=== PATIENT | female | born 1985 | race Caucasian/White ===

== ENCOUNTER 2017-12-25 15:06 | Inpatient (IN) | payer OTHER ==
[2017-12-25 16:04] VITALS: BMI 26.4
[2017-12-25] MEDS ORDERED: Morphine 5 MG/ML SYRINGE IM STA (16:18)
[2017-12-25] MEDS ORDERED: Lactated Ringer's 1,000 ML IV SCH (18:30)
--- NOTE | 2017-12-25 21:24 | OBHP ---
Datetime: 12/25/2017 15:50 IP Adm Impression: Term, intrauterine IP Admit Plan: Observation/Evaluation Admit Comment, IP Provider: 32-year-old at 40.0 weeks (LAURA: 12/25/17) presents with contract ions every 9-10 minutes. She denies a gush of fluid per the vagina and vaginal bleeding. Her first pr egnancy resulted in a due to breech positioning. She reports good movement. provider is Dr Dejesus and she last saw him today and her cervical exam was 1 cm dilated. ROS: Systems reviewed and negative except for stated above in HPI. : [facility], Dr Dejesus PMH: denies Meds: denies, PNV daily Allergy: denies FHx: mother - HTN, father - HTN Surgical: Cardiac surgery when she was 3 years old- no complications. OBHx: 1x C/S 2015; 1x SAB 2005 Labs: Blood: B+, antibody neg HIV: neg RPR: neg HbsAg: neg Rubella: immune GBS: unknown PE: in no acute distress, comfortable Cardiac: S1 and S2, no murmurs, gallops or rubs. Resp: no respiratory distress Abd: no tenderness to palpation Extremities: no edema Pelvic: tax associate present (Dr Saucedo), no external lesions, Assessment: 32-year-old at 40.0 weeks (LAURA of 12/25/17) presents with contractions every 9 -10 minutes. Plan: - Morphine 4mg IM given for pain. -NST: reactive, FHR 140, 15x15 accelerations, no decelerations, moderate variability - Patient given labor precautions. Case seen and discussed with Dr Saucedo and Dr. Luis ---Lizzy Cueva, PGY1 The patient was seen with the resident I agree with the note. Pt desires dscussed r/b/a pt de clines operative delivery would like to proceed with BETH pt wishes respected Pelvic Type - PN: Adequate Extremities - PN: Normal Abdomen - PN: Normal Back - PN: Normal Breast - PN: Not Done Lungs - PN: Normal Heart - PN: Normal Thyroid - PN: Not Done HEENT - PN: Not Done General - PN: Normal FHR - Baseline A Provider: 140 EGA AdmitDate IP: 40.0 Vital Signs Provider: Reviewed; Within Normal Limits IP Chief Complaint: Uterine contractions; Maternal discomfort NICHD Variability Prov Fetus A: Moderate 6-25bpm NICHD Accel Fetus A IP Provider: 15X15 FHR Category Provider Fetus A: Category I NICHD Decel Fetus A IP Provider: None Dilatation, Provider: 1-2 Effacement, Provider: 80 Station, Provider: 0 Genitourinary Exam: Normal DTRs - PN: Not Done
[2017-12-25] MEDS ORDERED: Oxytocin 30 UNIT 30 UNITS/500 ML BAG IV ONE (23:37)
[2017-12-25] MEDS ORDERED: Lactated Ringer's 1,000 ML IV ONE (23:37)
[2017-12-26 00:20] LABS: BASO % 0.4 % (0.0-2.0); EOS % 0.3 % (0.0-4.0); LYMPH # 1.7 K/uL (1.0-4.3); MEAN CELL VOLUME 92.4 fl (81.0-99.0); MEAN CORPUSCULAR HEMOGLOBIN 30.4 pg (27.0-31.0); MEAN CORPUSCULAR HGB CONC 32.9 g/dL (33.0-37.0); MEAN PLATELET VOLUME 9.1 fl (7.2-11.7); MONO # 0.7 K/uL (0.0-0.8); MONO % 6.2 % (0.0-10.0); NEUT % 78.1 % (50.0-75.0); RBC 4.29 Mil/uL (3.80-5.20); RED CELL DISTRIBUTION WIDTH 13.5 % (11.5-14.5); WHITE BLOOD COUNT 11.5 K/uL (4.8-10.8)
[2017-12-26] MEDS ORDERED: Fentanyl/Bupivacaine HCl 250 ML EPI ONE (01:15)
[2017-12-26] MEDS ORDERED: Lactated Ringer's 500 ML IV SCH (07:30)
[2017-12-26] MEDS ORDERED: Lactated Ringer's 1,000 ML IV SCH ×2 (07:30→17:45)
[2017-12-26] MEDS ORDERED: ePHEDrine 50 mg/ml Inj ONE (08:08)
[2017-12-26] MEDS ORDERED: Sodium Chloride 0.9% 10 ML IV ONE (08:08)
[2017-12-26] MEDS ORDERED: Phenylephrine 10 mg/ml Inj ONE (08:08)
[2017-12-26] MEDS ORDERED: Lidocaine Hydrochloride 0 ML INJ ONE (08:42)
[2017-12-26] MEDS ORDERED: OXYTOCIN/0.9 % NS 20 UNIT/1,000 ML BAG IV ONE ×2 (08:50→17:38)
--- NOTE | 2017-12-26 12:17 | OBPN ---
Datetime: 12/26/2017 12:12 IP Procedures: Sterile Vag Exam IP Progress Plan: Continue present management Contraction Comments Provider: q5-6min FHR - Baseline A Provider: 120s-130s IP Progress Note Comment: Continue current management. FHT category I. Discussed plan with patient and all patient questions answered. Vital Signs Provider: Reviewed; Within Normal Limits NICHD Accel Fetus A IP Provider: 15X15 FHR Category Provider Fetus A: Category I NICHD Variability Prov Fetus A: Moderate 6-25bpm Dilatation, Provider: 9 Effacement, Provider: 100 Station, Provider: 0 NICHD Decel Fetus A IP Provider: None Datetime: 12/26/2017 02:04 IP Informed Consent Obtain: Vaginal After Membranes, Provider: Ruptured IP Fetus A Comments: 3 minute period of intermittent auscultation with variable heart rate Gestation - Est Wks by US: 40.1 Presentation-Admit: Vertex
[2017-12-26] MEDS ORDERED: ceFAZolin IV 1 gm in Dextrose 1 GM/50 ML BAG IVPB ONE (14:57)
[2017-12-26] MEDS ORDERED: Lidocaine 2% MPF (5 ml) Inj ONE (15:07)
[2017-12-26] MEDS ORDERED: Morphine 1 mg/ml preservative-free Inj(Duramorph) ONE (15:18)
[2017-12-26] MEDS ORDERED: Lidocaine 2% PF (10 ml) Amp ONE (15:25)
--- NOTE | 2017-12-26 15:31 | OBPN ---
Datetime: 12/26/2017 15:27 IP Progress Impression: Arrest of dilatation/descent IP Informed Consent Obtain: Section Delivery; Risks, Benefits and Alternatives Discussed IP Procedures: Sterile Vag Exam IP Progress Plan: Deliver- Section Contraction Comments Provider: q4-5min FHR - Baseline A Provider: 120s-130s IP Progress Note Comment: Pt 9cm for 7.5-8hours. Cervix also swollen and edematous on exam. Discus sed findings with patient and recommended C/S delivery due to arrest of dilatation. Discussed the R/ B/A of surgery with patient and all patient questions. Pt consented for . Anesthesia notif ied. FHT category I. Vital Signs Provider: Reviewed; Within Normal Limits NICHD Accel Fetus A IP Provider: 15X15 FHR Category Provider Fetus A: Category I NICHD Variability Prov Fetus A: Moderate 6-25bpm Dilatation, Provider: 9 Effacement, Provider: 100 Station, Provider: 0 NICHD Decel Fetus A IP Provider: None
[2017-12-26] MEDS ORDERED: Cellulose Hemostat 2X3 Sheet ONE (16:25)
[2017-12-26] MEDS ORDERED: DiphenhydrAMINE 50 mg/ml Inj IVP PRN (16:58)
[2017-12-26] MEDS ORDERED: Midazolam 2 MG/2 ML VIAL ONE (17:04)
[2017-12-26] MEDS ORDERED: Oxycodone/Acetaminophen 5/325 mg Tab PO PRN ×2 (17:38)
[2017-12-26] MEDS ORDERED: Oxytocin 30 UNIT 30 UNITS/500 ML BAG IV ONE (17:38)
[2017-12-27] MEDS ORDERED: Oxytocin 30 UNIT 30 UNITS/500 ML BAG IV ONE (00:27)
[2017-12-27] MEDS ORDERED: Lactated Ringer's 1,000 ML IV SCH (00:27)
[2017-12-27] MEDS ORDERED: Oxycodone/Acetaminophen 5/325 mg Tab PO PRN ×3 (00:27→08:34)
[2017-12-27] MEDS ORDERED: DiphenhydrAMINE 50 mg/ml Inj IVP PRN (00:27)
[2017-12-27 07:16] LABS: BLOOD UREA NITROGEN 9 mg/dl (7-17); CALCIUM 8.1 mg/dL (8.4-10.2); GFR NON-AFRICAN AMERICAN > 60; HEMOGLOBIN 9.6 g/dL (12.0-16.0); MEAN CELL VOLUME 90.3 fl (81.0-99.0); MEAN CORPUSCULAR HEMOGLOBIN 30.9 pg (27.0-31.0); MEAN CORPUSCULAR HGB CONC 34.2 g/dL (33.0-37.0); RBC 3.09 Mil/uL (3.80-5.20); RED CELL DISTRIBUTION WIDTH 13.5 % (11.5-14.5); WHITE BLOOD COUNT 9.9 K/uL (4.8-10.8)
--- NOTE | 2017-12-27 08:33 | OBDS ---
DELIVERY PERSONNEL Welding Supervisor: Nieves Shepherd RN Anesthesiologist: Yosvany Hawley MD [place] Alarm Installer: kris hawley Resident: dr clarke MATERNAL INFORMATION Delivery Anesthesia: Epidural; Spinal Medications in Delivery: pitocin after placenta Estimated Blood Loss (ml): 800 Placenta Cultured: placenta to lab Other Maternal Complications: failed / ftp Provider Comments: Pt is a 32yo 39.5@wk gest, presented with suspected rupture of membranes (21 hours prior to presentation). Pt with failed and failure to progress was brought for C secti on . Epidural given. Delivered viable F @4:14pm via C section with of 9/9/10, Weight 3240gm. Procedure: C section delivery of viable female infant manual removal. No nuchal cord was noted. In raymon was bulb suctioned and was crying spontaneously. was placed with mother. Cord was doubled clamped. Placenta was delivered intact spontaneously and three vessel cords were noted. Pitocin afte r the placenta were given. Estimated blood loss was 800cc. Condition: was taken to nursery. Both mother and infant in stable condition Case reviewed and discussed with Dr.Gressock Natalie Clarke-PGY-1 LABOR SUMMARY EDC: 12/25/2017 00:00 No. Babies in Womb: 1 Attempted: Yes Labor Anesthesia: Epidural LABOR INFORMATION Onset of Labor: 12/26/2017 12:00 Group B Beta Strep: Negative Steroids Given: None MEMBRANES Membranes Rupture Method: Artificial Rupture of Membranes: 12/26/2017 01:57 Length of Rupture (hrs): 14.28 Amniotic Fluid Color: Clear Amniotic Fluid Amount: Moderate Amniotic Fluid Odor: Normal STAGES OF LABOR Stage 3 hrs: 0 Stage 3 min: 1 Total Time in Labor hrs: 4 Total Time in Labor min: 15 VAGINAL DELIVERY Episiotomy: None CSECTION DELIVERY Primary Indication: failed v.b.a.c Secondary Indication: arrest to [place]grass CSection Urgency: Non Elective CSection Incidence: Repeat Labor: Labor Elective: Failed CSection Incision: Lower Uterine Transverse BABY A INFORMATION Delivery Date/Time: 12/26/2017 16:14 Method of Delivery: Born in Route : Yes : Failed Forceps: N/A Vacuum Extraction: N/A SHOULDER DYSTOCIA BABY A Infant Delivery Date/Time: 12/26/2017 16:14 PRESENTATION/POSITION BABY A Presentation: Cephalic Cephalic Presentation: Vertex Vertex Position: Left Occipital Posterior Breech Presentation: N/A PLACENTA INFORMATION BABY A Placenta Delivery Time : 12/26/2017 16:15 Placenta Method of Delivery: Manual Removal Placenta Status: Delivered SCORES BABY A Heart Rate 1 min: >100 bpm Resp Effort 1 min: Good Cry Reflex Irritability 1 min: Cough or Sneeze or Pulls Away Muscle Tone 1 min: Active Motion Color 1 min: Body [place], Extremities Blue SCORE 1 MIN: 9 Heart Rate 5 min: >100 bpm Resp Effort 5 min: Good Cry Reflex Irritability 5 min: Cough or Sneeze or Pulls Away Muscle Tone 5 min: Active Motion Color 5 min: Body [place], Extremities Blue Resuscitation Effort 5 min: Tactile Stimulation SCORE 5 MIN: 9 Heart Rate 10 min: >100 bpm Resp Effort 10 min: Good Cry Reflex Irritability 10 min: Cough or Sneeze or Pulls Away Muscle Tone 10 min: Active Motion Color 10 min: Completely [place] SCORE 10 MIN: 10 INFORMATION BABY A Gestational Age at Delivery: 40.0 Gestational Status: Term Infant Outcome : Liveborn Condition : Stable Sex: Female IDENTIFICATION/MEDS BABY A ID Band Number: [id number] ID Band Location: Left Leg; Left Arm WEIGHT/LENGTH BABY A Birthweight (gms): 3240 Weight (lb): 7 Weight (oz): 2 Infant Length Inches: 20.00 Length cms: 50.8 CORD INFORMATION BABY A No. Cord Vessels: 3 Nuchal Cord : N/A Cord pH Baby Arterial: no Cord pH Baby Venous: yes Cord Blood Taken: Yes Banking/Donate Info: no Suction: Mouth; Nose ASSESSMENT BABY A Complications: None Physical Findings at Delivery: Within Normal Limits Infant Respirations: Appears Normal Crew Car Driver/ALS Called : Yes Infant Care By: dr chopra / handy leon rn / anneliese rapp rn Transferred To: Remains with Mother
[2017-12-27] MEDS ORDERED: Enoxaparin 40 mg Syringe SC SCH ×3 (09:00)
[2017-12-27] MEDS ORDERED: Multivitamin With Minerals Tab PO SCH ×2 (09:00)
[2017-12-27] MEDS: Multivitamin With Minerals Tab PO SCH (09:59)
--- NOTE | 2017-12-27 15:44 | OBPPN ---
Datetime: 12/27/2017 15:41 PP Pain Prov: Within normal limits PP Nausea Prov: Denies PP Flatus Prov: No PP BM Prov: No PP Breasts Prov: Normal PP Heart Prov: Normal PP Lungs Prov: Normal PP Abdomen/Uterus Prov: Normal PP Lochia Prov: Normal PP Vulva/Perineum Prov: Normal PP CVA Tenderness Prov: Normal PP Extremities Prov: Normal PP C/S Incision Prov: Normal PP Progress Prov: Normal PP Impression Prov: Normal progression PP Plan Prov: Continue present management PP Progress Note Prov: She feels some incision pain H/H 11/21 A: S/P C-ssection day 1 anemia - asymtpomatic PLAN: continue post op care Vital Signs Provider PP: Reviewed; Within Normal Limits
[2017-12-27] MEDS: Oxycodone/Acetaminophen 5/325 mg Tab PO PRN ×2 (17:39→21:55)
--- NOTE | 2017-12-28 09:20 | OBPPN ---
Datetime: 12/28/2017 09:17 PP Pain Prov: Within normal limits PP Nausea Prov: Denies PP Flatus Prov: Yes PP BM Prov: No PP Breasts Prov: Normal PP Heart Prov: Normal PP Lungs Prov: Normal PP Abdomen/Uterus Prov: Normal PP Lochia Prov: Normal PP Vulva/Perineum Prov: Normal PP CVA Tenderness Prov: Normal PP Extremities Prov: Normal PP C/S Incision Prov: Normal PP Progress Prov: Normal PP Impression Prov: Normal progression PP Plan Prov: Continue present management PP Progress Note Prov: POD 2 cont postop care; dulcolax tonight if no BM Vital Signs Provider PP: Reviewed; Within Normal Limits
[2017-12-28] MEDS: Multivitamin With Minerals Tab PO SCH (09:43)
[2017-12-28] MEDS: Oxycodone/Acetaminophen 5/325 mg Tab PO PRN (13:46)
[2017-12-29] MEDS: Multivitamin With Minerals Tab PO SCH (09:10)
--- NOTE | 2017-12-29 11:24 | OBPPN ---
Datetime: 12/29/2017 11:22 PP Pain Prov: Within normal limits PP Nausea Prov: Denies PP Flatus Prov: Yes PP BM Prov: Yes PP Breasts Prov: Normal PP Heart Prov: Normal PP Lungs Prov: Normal PP Abdomen/Uterus Prov: Normal PP Lochia Prov: Normal PP Vulva/Perineum Prov: Normal PP CVA Tenderness Prov: Normal PP Extremities Prov: Normal PP C/S Incision Prov: Normal PP Progress Prov: Normal PP Comments Phys Exam Prov: Abdomen soft, nontender, nondistended Incision clean, dry, intact Uterus firm, below umbilicus No deep calf tenderness bilaterally PP Impression Prov: Normal progression PP Plan Prov: Discharge PP Progress Note Prov: Postoperative day #3 status post repeat , patient recovering well Patient discharged home today with postoperative instructions and precautions Patient will follow up in office in 1 week for incision check and staple removal Discussed plan a patient all patient questions answered. IP PP Procedures: None Vital Signs Provider PP: Reviewed; Within Normal Limits
--- NOTE | 2017-12-29 11:30 | OBDCSUM ---
Datetime: 12/29/2017 10:44 Discharged to, Provider: Home Follow up at, Provider: [employer]EL[employer] Disch Instr Activity: Normal activity Disch Instr Diet: Regular Discharge Instructions, Provider: Routine instructions given Discharge Diagnosis, Provider: Term Delivered Discharge Time: 12/29/2017 11:00 Follow up in weeks, Provider: 1 Week Disch Referrals: None Contraception discussed, Prov: Yes Disch Activity Restrictions: No sexual activity; Nothing in vagina - [place], tampons, douche Contraception after Delivery: Undecided
--- NOTE | 2017-12-30 04:08 | OP ---
PROCEDURE DATE: 12/26/2017 PREOPERATIVE DIAGNOSES: Arrest of dilation at 9 cm for approximately 7-1/2 to 8 hours, failed vaginal after section. POSTOPERATIVE DIAGNOSES: Arrest of dilation at 9 cm for approximately 7-1/2 to 8 hours, failed vaginal after section. OPERATION PERFORMED: Repeat low-flap transverse section via Pfannenstiel incision. OPERATIVE FINDINGS: Viable female with Apgars of 9 and 9 in one and five minutes respectively. in direct OP position. Moderate amount of intra-abdominal and pelvic adhesions. Normal uterus, normal tubes and ovaries bilaterally. SURGEON: Jignesh Franco MD ENGRAVER LETTERING: Dr. Saucedo ANESTHESIOLOGIST: Dr. Hawley ANESTHESIA: Spinal. COMPLICATIONS: None. DESCRIPTION OF PROCEDURE: The patient was taken to the operating room where spinal anesthesia was found to be adequate. The patient was prepped and draped in a normal sterile fashion in the dorsal supine position with leftward tilt. A Pfannenstiel skin incision was made with a scalpel. This was carried down through to the underlying layer of fascia with the scalpel. Midline dissection was made in the fascial layer with the scalpel. The fascial incision was then extended bilaterally sharply with curved Brown scissors. The fascial layer was from the underlying rectus muscles both bluntly and sharply with curved Brown scissors. The peritoneal layer was then identified, tented up with Naida clamp x2, and entered sharply with Metzenbaum scissors. This peritoneal incision was then extended superiorly and inferiorly with good visualization of the urinary bladder. Bladder blade was inserted into the abdomen. The vesicouterine peritoneum was then identified, tented upward with Naida clamps x2, and entered sharply with Metzenbaum scissors. This peritoneal incision was then extended bilaterally bluntly. The 's head was delivered atraumatically. Nose and mouth were suctioned with bulb suction. The remainder of the was delivered atraumatically. The cord was clamped and cut. The was handed off to awaiting pediatricians. Cord gases were collected. Cord blood was collected. The placenta was removed manually. The uterus was cleared of all clots and debris. The uterine incision was repaired with 0 Vicryl in a running, locked fashion. The second layer of the same suture was used to imbricate the first to obtain excellent hemostasis. Re-inspection of the uterine incision proved excellent hemostasis. The abdomen and pelvis were irrigated with copious amounts of warm normal saline. Re-inspection of the uterine incision proved hemostasis. All instruments were removed from the patient. The peritoneal layer was closed with a running stitch of 2-0 chromic. The rectus muscles were reapproximated in the midline with a running stitch of 2-0 chromic. The fascial layer was closed with a running stitch of 0 Vicryl. The subcutaneous tissue was closed with a running stitch of 3-0 plain. The skin was closed with ritchie. The patient tolerated the procedure well. All sponge, lap, and needle counts were correct x2. There were no complications. The patient was taken to the recovery room in awake and stable condition. Jignesh Franco MD
[2017-12-31 11:52] VITALS: BP 96/51; PULSE 76; RESP 18; TEMP 98.1; O2SAT 98
== END 2017-12-29 12:05 | disposition home or self-care (01) | DRG 788 ==
LOC: H.EROB2 15:06 → H.L&D 23:37 → MERGE 23:37 → H.L&D 12-26 02:01 → H.OB/GYN 12-26 20:57
PROVIDERS: ADMIT Obstetrics & Gynecology Gynecology; ATTEND Obstetrics & Gynecology Gynecology
PROC: 4A1HXCZ Monitoring of Products of Conception, Cardiac Rate, External Approach (ICD-10-PCS; 2017-12-24)
PROC: 10D00Z1 Extraction of Products of Conception, Low, Open Approach (ICD-10-PCS; principal; 2017-12-26)
DX: O62.0 Primary inadequate contractions (principal); O34.211 Maternal care for low transverse scar from previous cesarean delivery; N85.8 Other specified noninflammatory disorders of uterus; Z3A.40 40 weeks gestation of pregnancy; Z37.0 Single live birth; N73.6 Female pelvic peritoneal adhesions (postinfective)